=== PATIENT | female | born 1995 | race African-American/Black ===

== ENCOUNTER 2018-01-29 22:25 | Emergency (ER) | payer OTHER ==
[~2018-01-29] VITALS: Ht 157.5 cm; Wt 81.7 kg
[~2018-01-29 22:25] MED LIST: Macrobid 100 M100 MG PO
[2018-01-30] MEDS ORDERED: Prednisone50 MG PO (02:36)
== END 2018-01-30 02:55 | disposition home or self-care (01) ==
LOC: ER 22:25
DX: J45.909 Unspecified asthma, uncomplicated (principal); Z91.010 Allergy to peanuts; Z88.2 Allergy status to sulfonamides; Z87.891 Personal history of nicotine dependence
CPT/HCPCS: 71046; 93005; 93010; 94640; 99283; J1100

== ENCOUNTER 2018-02-13 10:53 | Emergency (ER) | payer OTHER ==
[~2018-02-13] VITALS: Ht 157.5 cm; Wt 81.7 kg
[~2018-02-13 10:53] MED LIST changes: +Prednisone50 MG PO
[2018-02-14] MEDS ORDERED: Cyclobenzaprine5 MG PO (23:25)
== END 2018-02-13 13:38 | disposition home or self-care (01) ==
LOC: ER 10:53
DX: S20.229A Contusion of unspecified back wall of thorax, initial encounter (principal); W19.XXXA Unspecified fall, initial encounter; Z91.010 Allergy to peanuts; Z88.2 Allergy status to sulfonamides; Z79.52 Long term (current) use of systemic steroids; J45.909 Unspecified asthma, uncomplicated; Z87.891 Personal history of nicotine dependence
CPT/HCPCS: 36415; 72070; 84703; 99283

== ENCOUNTER 2018-02-14 21:43 | Emergency (ER) | payer OTHER ==
[~2018-02-14] VITALS: Ht 160 cm; Wt 81.7 kg
[2018-02-14] MEDS ORDERED: Cyclobenzaprine5 MG PO (23:25)
== END 2018-02-14 23:34 | disposition home or self-care (01) ==
LOC: ER 21:43
DX: S00.83XA Contusion of other part of head, initial encounter (principal); G89.29 Other chronic pain; M54.6 Pain in thoracic spine; F17.200 Nicotine dependence, unspecified, uncomplicated; Z91.010 Allergy to peanuts; Z88.2 Allergy status to sulfonamides; Y04.2XXA Assault by strike against or bumped into by another person, initial encounter
CPT/HCPCS: 96372; 99283; J1885